=== PATIENT | female | born 1950 | race African-American/Black ===

== ENCOUNTER 2016-08-28 08:39 | Emergency (ER) | payer OTHER ==
[~2016-08-28] VITALS: Ht 167.6 cm; Wt 86.2 kg
--- NOTE | ~2016-08-28 | EKG ---
[address] [address] ELECTROCARDIOGRAM REPORT Name: AILYN MARQUEZ [id number] Admission: 08/28/16 Attend Phys: Discharge: 08/28/16 Date of : 54 Report #: [id number] THIS REPORT FOR: //name// [facility] ED Test Date: 2016-08-28 Test Time: 08:44:27 Pat Name: AILYN MARQUEZ Department: Room: Gender: F C S S Representative: IRWIN : 1950 Requested By: Alyssia Penaloza Order Number: [id number] MD: Jamar Valdovinos Measurements Intervals [place] Rate: 68 P: -86 IN: 107 QRS: 29 QRSD: 94 T: -1 QT: 450 QTc: 479 Interpretive Statements Sinus or ectopic atrial rhythm Short IN interval Borderline T abnormalities, diffuse leads Compared to ECG 12/26/2015 11:32:23 Ectopic atrial rhythm now present Short IN interval now present T-wave abnormality now present Sinus rhythm no longer present Myocardial infarct finding no longer present Electronically Signed On 08-28-2016 15:14:49 HAND THERAPIST by Jamar Valdovinos [email or web address] <ELECTRONICALLY SIGNED> By: Jamar Valdovinos MD 08/28/16 1514 0844 Jamar Valdovinos MD /EPI
[~2016-08-28 08:39] MED LIST: DICLOFENAC PO; HYDROCHLOROTHIA25 M1 PO; HYDROCHLOROTHIA25 M2 PO; IBUPROFEN 400400 M2 PO; LOSARTAN-HCTZ1 EAC3 PO; MECLIZINE 25 MG25 M1 PO; MISOPROSTOL PO; MOTION RELIEF25 MG PO; PHENERGAN 25 MG25 M1 PO; POTASSIUM20 PO; TOPROL XL25 MG PO; TOPROL XL50 MG PO; VERTICALM25 MG PO
[2016-08-28] MEDS ORDERED: DIFLUCAN150 MG PO (09:06)
[2016-08-28] MEDS ORDERED: AMOXICILLIN 50500 MG PO (09:06)
[2016-08-28 09:25] LABS: HEMATOCRIT 42.2 % (37.0-47.0); HEMOGLOBIN 13.9 gm/dL (12.0-15.0); MCH 27.6 pg (26.0-34.0); MCHC 32.9 % (28.0-37.0); MCV 83.9 fL (80.0-100.0); PLATELET COUNT 278 thou/uL (150-400); RBC 5.03 mil/uL (4.20-5.00); RDW 13.7 % (10.5-14.5); WBC 23.8 thou/uL (4.0-11.0)
[2016-08-28 09:29] LABS: CALCIUM 8.9 mg/dL (8.5-10.1); MANUAL DIFF YES; POTASSIUM 3.1 mmol/L (3.5-5.1)
[2016-08-28 09:49] LABS: TOTAL CELL COUNT 100
[2016-08-28] MEDS ORDERED: VALIUM5 MG PO (10:07)
[2016-08-28] MEDS ORDERED: ZOFRAN ODT4 MG PO (10:07)
== END 2016-08-28 11:00 | disposition home or self-care (01) ==
LOC: ER 08:39
PROVIDERS: Emergency Medicine
DX: R42 Dizziness and giddiness (principal); J01.10 Acute frontal sinusitis, unspecified; I10 Essential (primary) hypertension; Z90.710 Acquired absence of both cervix and uterus; G89.29 Other chronic pain; Z88.2 Allergy status to sulfonamides; F10.99 Alcohol use, unspecified with unspecified alcohol-induced disorder

== ENCOUNTER 2016-12-20 08:05 | Emergency (ER) | payer OTHER ==
[~2016-12-20] VITALS: Ht 167.6 cm; Wt 85.7 kg
--- NOTE | ~2016-12-20 | EKG ---
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 : 1950 Requested By: Morro Clinton Order Number: [id number] MD: Joao Joseph Measurements Intervals [place] Rate: 55 P: 17 VT: 136 QRS: 20 QRSD: 86 T: 26 QT: 478 QTc: 458 Interpretive Statements Sinus rhythm Nonspecific T abnrm, anterolateral leads Compared to ECG 08/28/2016 08:44:27 nonspecific changes in the ST and T-wave segments Electronically Signed On 12-21-2016 11:24:57 CDT by Joao Joseph [email or web address] <ELECTRONICALLY SIGNED> By: Joao Joseph MD, [facility] 12/21/16 1124 1011 1011 Joao Joseph MD, [facility] /EPI
[~2016-12-20 08:05] MED LIST changes: +AMOXICILLIN 50500 MG PO; +DIFLUCAN150 MG PO; +VALIUM5 MG PO; +ZOFRAN ODT4 MG PO
[2016-12-20 10:07] LABS: ABSOLUTE NEUTROPHILS 7.5 thou/uL (1.4-8.2); BASOPHILS 0.5 % (0.0-2.0); EOSINOPHILS 0.6 % (0.0-3.0); HEMATOCRIT 43.4 % (37.0-47.0); HEMOGLOBIN 14.4 gm/dL (12.0-15.0); LYMPHOCYTES 13.9 % (24.0-44.0); MCH 28.3 pg (26.0-34.0); MCHC 33.2 g/dL (28.0-37.0); MCV 85.1 fL (80.0-100.0); MONOCYTES 5.9 % (1.0-8.0); PLATELET COUNT 264 thou/uL (150-400); POLYS 79.1 % (36.0-66.0); RBC 5.11 mil/uL (4.20-5.00); RDW 13.7 % (10.5-14.5); WBC 9.5 thou/uL (4.0-11.0)
[2016-12-20 10:09] LABS: MANUAL DIFF NO
[2016-12-20 10:14] LABS: CREATININE 1.2 mg/dL (0.6-1.0); POTASSIUM 3.7 mmol/L (3.5-5.1)
[2016-12-20] MEDS ORDERED: MEDROLDOSEPACK PO (10:48)
[2016-12-20] MEDS ORDERED: ACETAMINOPHEN-1 EAC1 PO (10:48)
== END 2016-12-20 11:18 | disposition home or self-care (01) ==
LOC: ER 08:05
PROVIDERS: Emergency Medicine
DX: J20.8 Acute bronchitis due to other specified organisms (principal); I10 Essential (primary) hypertension; Z90.710 Acquired absence of both cervix and uterus; Z88.2 Allergy status to sulfonamides

== ENCOUNTER 2017-02-02 10:08 | Observation (INO) | payer OTHER ==
[~2017-02-02] VITALS: Ht 170.2 cm; Wt 86.2 kg
--- NOTE | ~2017-02-02 | EKG ---
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 LEWIS : 1950 Requested By: Kumar Chapin Order Number: [id number] MD: Joao Joseph Measurements Intervals [place] Rate: 49 P: 37 CT: 166 QRS: 18 QRSD: 93 T: -2 QT: 473 QTc: 428 Interpretive Statements Sinus bradycardia Probable anteroseptal infarct, old Borderline T abnormalities Compared to ECG 12/20/2016 10:11:18 T wave abnormality less prominent Electronically Signed On 02-03-2017 8:42:58 CDT by Joao Joseph [email or web address] <ELECTRONICALLY SIGNED> By: Joao Joseph MD, [facility] 02/03/17 0842 1414 1414 Joao Joseph MD, [facility] /EPI
[~2017-02-02 10:08] MED LIST changes: +ACETAMINOPHEN-1 EAC1 PO; +MEDROLDOSEPACK PO
[2017-02-02 10:09] VITALS: BP 195/105
[2017-02-02 11:27] LABS: ABSOLUTE NEUTROPHILS 5.7 thou/uL (1.4-8.2); BASOPHILS 0.8 % (0.0-2.0); EOSINOPHILS 3.3 % (0.0-3.0); HEMATOCRIT 40.8 % (37.0-47.0); HEMOGLOBIN 13.4 gm/dL (12.0-15.0); LYMPHOCYTES 20.7 % (24.0-44.0); MCH 28.2 pg (26.0-34.0); MCHC 32.7 g/dL (28.0-37.0); MCV 86.2 fL (80.0-100.0); MONOCYTES 6.8 % (1.0-8.0); PLATELET COUNT 228 thou/uL (150-400); POLYS 68.4 % (36.0-66.0); RBC 4.74 mil/uL (4.20-5.00); RDW 14.1 % (10.5-14.5); WBC 8.4 thou/uL (4.0-11.0)
[2017-02-02 11:28] LABS: MANUAL DIFF NO
[2017-02-02 13:29] LABS: CALCIUM 8.8 mg/dL (8.5-10.1); POTASSIUM 3.4 mmol/L (3.5-5.1)
[2017-02-02 14:02] VITALS: BP 166/86
[2017-02-02 14:55] VITALS: BP 157/91
[2017-02-02 20:00] VITALS: BP 124/66
[2017-02-03 04:00] VITALS: BP 1518/89
[2017-02-03 08:15] VITALS: BP 185/104
[2017-02-03 16:00] VITALS: BP 152/86
[2017-02-03 20:35] VITALS: BP 132/79
[2017-02-04 04:58] VITALS: BP 148/73
[2017-02-04 10:15] VITALS: BP 154/83
[2017-02-04] MEDS ORDERED: ANTIVERT25 MG PO (10:35)
[2017-02-04 11:15] VITALS: BP 154/83
== END 2017-02-04 11:52 | disposition home or self-care (01) ==
LOC: ER 10:08 → EROBS 13:25 → 4E 13:25 → EROBS 13:25 → 4E 14:03
PROVIDERS: Nurse Practitioner
DX: H81.10 Benign paroxysmal vertigo, unspecified ear (principal); H66.92 Otitis media, unspecified, left ear; I10 Essential (primary) hypertension; E87.6 Hypokalemia; M54.9 Dorsalgia, unspecified; J32.9 Chronic sinusitis, unspecified; G89.29 Other chronic pain; Z72.89 Other problems related to lifestyle

== ENCOUNTER 2020-09-24 11:29 | Emergency (ER) | payer OTHER ==
[~2020-09-24] VITALS: Ht 167.6 cm; Wt 86.2 kg
[~2020-09-24 11:29] MED LIST changes: +ANTIVERT25 MG PO
[2020-09-24 13:30] VITALS: BP 161/89
[2020-09-24] MEDS ORDERED: NAPROSYN500 MG PO (13:30)
== END 2020-09-24 13:41 | disposition home or self-care (01) ==
LOC: ER 11:29
DX: S80.02XA Contusion of left knee, initial encounter (principal); S80.01XA Contusion of right knee, initial encounter; I10 Essential (primary) hypertension; G89.29 Other chronic pain; M54.9 Dorsalgia, unspecified; Z90.710 Acquired absence of both cervix and uterus; Z79.899 Other long term (current) drug therapy; Z88.2 Allergy status to sulfonamides; W18.39XA Other fall on same level, initial encounter; Y93.89 Activity, other specified; Y92.89 Other specified places as the place of occurrence of the external cause; Y99.8 Other external cause status